=== PATIENT | male | born 1985 | race Caucasian/White ===

== ENCOUNTER → 2019-08-03 16:58 | Outpatient (CLI) | payer OTHER, SELFPAY ==
[2019-08-03 17:59] LABS: Basophils # 0.1 K/mm3 (0-0.2); Basophils % 0.6 % (0.1-2.0); Eosinophils # 0.2 K/mm3 (0.0-0.4); Eosinophils % 2.2 % (0.1-12.0); Hematocrit 52.1 % (42.0-52.0); Hemoglobin 16.7 g/dL (14.1-18.0); Lymphocytes # 1.6 K/mm3 (0.7-4.5); Lymphocytes % 19.6 % (10-50); Mean Corpuscular HGB Conc 32.1 g/dL (31.8-35.4); Mean Corpuscular Hemoglobin 27.2 pg (27.0-31.2); Mean Corpuscular Volume 84.6 fl (80-94); Mean Platelet Volume 8.4 fl (7.4-10.4); Monocytes # 0.5 K/mm3 (0.1-1.0); Monocytes % 5.6 % (1.7-9.3); Neutrophils # 5.8 K/mm3 (1.8-7.8); Platelet Count 214 K/mm3 (142-424); Red Blood Count 6.16 M/mm3 (4.60-6.20); Red Cell Distribution Width 13.1 % (11.5-17.5)
[2019-08-03 21:16] LABS: Chloride 101 mmol/L (98-107); Potassium 4.8 mmoL/L (3.5-5.1); Sodium 137 mmol/L (136-145)
[2019-08-03 21:18] LABS: Blood Urea Nitrogen 13 mg/dl (9-20); Estimated Glomerular Filt Rate 132 ml/min (>60); GFR (African American) 159 ML/MIN (>60)
[2019-08-03 21:19] LABS: Alanine Aminotransferase 38 U/L (12-78); Albumin Level 4.4 g/dl (3.5-5.0); Albumin/Globulin Ratio 1.2 (1.1-1.8); Alkaline Phosphatase 122 U/L (38-126); Anion Gap 15.8 mEq/L (5-15); Aspartate Amino Transferase 28 U/L (17-59); Bilirubin,Total 0.5 mg/dl (0.2-1.3); Calcium 9.8 mg/dl (8.4-10.2); Carbon Dioxide 25 mmol/L (22.0-30.0); Chol/HDL Ratio 5.7 (1-3.5); Cholesterol 246 mg/dl (140-200); Globulin 3.6 g/dL (1.3-3.2); Glucose 242 mg/dl (74-100); HDL Cholesterol 43 mg/dl (40-60); Triglycerides 274 mg/dl (30-150); VLDL Cholesterol 55 mg/dL (0-40)
[2019-08-03 21:35] LABS: Direct LDL Cholesterol 158.09 mg/dL (100-129)
[2019-08-03 21:38] LABS: Free T4 (Free Thyroxine) 1.31 ng/dl (0.78-2.19)
== END ==
PROVIDERS: Visit Provider Emergency Medicine
DX: I10 Essential (primary) hypertension (principal); K21.9 Gastro-esophageal reflux disease without esophagitis; E66.09 Other obesity due to excess calories; G47.33 Obstructive sleep apnea (adult) (pediatric)
CPT/HCPCS: 80053; 80061; 84439; 84443; 85025

== ENCOUNTER → 2019-11-09 17:23 | Outpatient (CLI) | payer OTHER, SELFPAY | PROVIDERS: Visit Provider Nurse Practitioner Family | DX: R31.0 Gross hematuria (principal) | CPT/HCPCS: 87086; 87088; 87186 ==

== ENCOUNTER → 2020-01-04 17:41 | Outpatient (CLI) | payer OTHER, SELFPAY ==
[2020-01-04 18:02] LABS: Basophils % 0.3 % (0.1-2.0); Eosinophils # 0.2 K/mm3 (0.0-0.4); Eosinophils % 2.5 % (0.1-12.0); Hemoglobin 16.6 g/dL (14.1-18.0); Lymphocytes # 1.7 K/mm3 (0.7-4.5); Lymphocytes % 19.3 % (10-50); Mean Corpuscular HGB Conc 33.1 g/dL (31.8-35.4); Mean Corpuscular Hemoglobin 28.5 pg (27.0-31.2); Mean Platelet Volume 9.2 fl (7.4-10.4); Monocytes # 0.5 K/mm3 (0.1-1.0); Monocytes % 5.6 % (1.7-9.3); Neutrophils # 6.3 K/mm3 (1.8-7.8); Neutrophils % 72.3 % (37.0-80.0); Platelet Count 188 K/mm3 (142-424); Red Blood Count 5.82 M/mm3 (4.60-6.20); Red Cell Distribution Width 13.2 % (11.5-17.5); White Blood Count 8.7 K/mm3 (4.8-10.8)
[2020-01-04 18:12] LABS: Alanine Aminotransferase 39 U/L (12-78); Albumin/Globulin Ratio 1.2 (1.1-1.8); Alkaline Phosphatase 155 U/L (38-126); Anion Gap 11.2 mEq/L (5-15); Aspartate Amino Transferase 36 U/L (17-59); Bilirubin,Total 0.4 mg/dl (0.2-1.3); Blood Urea Nitrogen 7 mg/dl (9-20); Calcium 9.3 mg/dl (8.4-10.2); Carbon Dioxide 27 mmol/L (22.0-30.0); Chloride 102 mmol/L (98-107); Estimated Glomerular Filt Rate 193 ml/min (>60); GFR (African American) 233 ML/MIN (>60); Globulin 3.4 g/dL (1.3-3.2); Glucose 334 mg/dl (74-100); Potassium 4.2 mmoL/L (3.5-5.1); Sodium 136 mmol/L (136-145); Total Protein,Serum 7.4 g/dl (6.3-8.2)
[2020-01-04 18:27] LABS: 25-OH Vitamin D, Total 20.8 ng/mL (30-100)
[2020-01-04 19:49] LABS: Hemoglobin A1C 10.4 % (4.0-6.0)
== END ==
PROVIDERS: Visit Provider Emergency Medicine
DX: E66.9 Obesity, unspecified (principal); E55.9 Vitamin D deficiency, unspecified
CPT/HCPCS: 80053; 82306; 83036; 84439; 84443; 85025

== ENCOUNTER → 2021-01-24 15:55 | Outpatient (CLI) | payer OTHER, SELFPAY ==
[2021-01-24 16:03] LABS: Basophils # 0.1 K/mm3 (0-0.2); Basophils % 0.8 % (0.1-2.0); Eosinophils # 0.3 K/mm3 (0.0-0.4); Eosinophils % 3.7 % (0.1-12.0); Hematocrit 50.2 % (42.0-52.0); Lymphocytes # 1.8 K/mm3 (0.7-4.5); Lymphocytes % 19.9 % (10-50); Mean Corpuscular HGB Conc 31.9 g/dL (31.8-35.4); Mean Corpuscular Hemoglobin 27.3 pg (27.0-31.2); Mean Corpuscular Volume 85.6 fl (80-94); Mean Platelet Volume 9.8 fl (7.4-10.4); Monocytes # 0.6 K/mm3 (0.1-1.0); Monocytes % 6.3 % (1.7-9.3); Neutrophils # 6.3 K/mm3 (1.8-7.8); Neutrophils % 69.3 % (37.0-80.0); Platelet Count 182 K/mm3 (142-424); Red Blood Count 5.86 M/mm3 (4.60-6.20); Red Cell Distribution Width 13.9 % (11.5-17.5); White Blood Count 9.2 K/mm3 (4.8-10.8)
[2021-01-24 16:50] LABS: Chloride 104 mmol/L (98-107); Potassium 4.4 mmoL/L (3.5-5.1); Sodium 139 mmol/L (136-145)
[2021-01-24 16:53] LABS: Alanine Aminotransferase 21 U/L (12-78); Albumin Level 4.1 g/dl (3.5-5.0); Albumin/Globulin Ratio 1.3 (1.1-1.8); Alkaline Phosphatase 108 U/L (38-126); Anion Gap 12.4 mEq/L (5-15); Aspartate Amino Transferase 23 U/L (17-59); Bilirubin,Total 0.3 mg/dl (0.2-1.3); Blood Urea Nitrogen 10 mg/dl (9-20); Carbon Dioxide 27 mmol/L (22.0-30.0); Estimated Glomerular Filt Rate 155 ml/min (>60); GFR (African American) 188 ML/MIN (>60); Globulin 3.1 g/dL (1.3-3.2); Glucose 212 mg/dl (74-100); Total Protein,Serum 7.2 g/dl (6.3-8.2)
== END ==
PROVIDERS: Visit Provider Nurse Practitioner Family
DX: N39.0 Urinary tract infection, site not specified (principal); I10 Essential (primary) hypertension
CPT/HCPCS: 80053; 85025; 87086

== ENCOUNTER → 2021-07-02 12:54 | Outpatient (CLI) | payer OTHER, SELFPAY | PROVIDERS: PCP Emergency Medicine; Visit Provider Nurse Practitioner | DX: U07.1 COVID-19 (principal) | CPT/HCPCS: C9803; U0003; U0005 ==

== ENCOUNTER → 2021-07-16 16:00 | Outpatient (CLI) | payer OTHER, SELFPAY ==
[2021-07-16 21:22] LABS: Hemoglobin A1C 6.2 % (4.0-6.0)
== END ==
PROVIDERS: Visit Provider Nurse Practitioner Family
DX: R73.9 Hyperglycemia, unspecified (principal); Z79.84 Long term (current) use of oral hypoglycemic drugs
CPT/HCPCS: 83036

== ENCOUNTER → 2021-07-18 08:05 | Outpatient (CLI) | payer OTHER, SELFPAY ==
--- NOTE | 2021-07-18 08:07 | CA_ITS ---
FINAL REPORT TECHNIQUE: Grayscale, color Doppler and duplex Doppler ultrasound of the kidneys, aorta and renal arteries was performed. Multiple velocities were measured. CLINICAL HISTORY: htn/abnormal ecg FINDINGS: Aorta velocity: 112 cm/sec Right kidney: 13.8 cm. No evidence of hydronephrosis or mass. Right intrarenal RI: 0.63 Right renal artery velocity: 136 cm/sec. Right RAR (Renal artery-Aortic Ratio): 1.21 Left Kidney: 14.2 cm. No evidence of hydronephrosis or mass. Left intrarenal RI: 0.70 Left renal artery velocity: 120 cm/sec. Left RAR (Renal Artery-Aortic Ratio): 1.06 IMPRESSION: No evidence of significant renal artery stenosis. CT angiogram or postcontrast MR angiogram would be more sensitive for evaluation of possible renal artery stenosis. Reviewed, Interpreted and Dictated by Nabeel Gordon III, MD Transcribed by Rufino Fernandes Authenticated by Nabeel Gordon III, MD on 07/18/2021 09:40:00 AM [facility]
--- NOTE | 2021-07-18 08:07 | CA_ITS ---
APPROVED REPORT EXAM: Comprehensive 2D, Doppler, and color-flow Echocardiogram Rn Med Surg: Haylee Gordon CRT Ht: 6 ft 5 in Wt: 361lbs BSA: 2.87 BP: 188/120 mmHg Indications: Abnormal ECG, Diabetes, Obesity, Peripheral Edema, Hyperlipidemia, Hypertension/HDD, GERD 2D Dimensions LVOT 2.17 cm (M/F) 1.5-2.5 LA Volume 51.00 mL LA Volume Index 17.80 mL/m2 (M/F) 16-34 M-Mode Dimensions RVDd 3.33 cm (0.9-2.6) LA Diam 4.28 cm (1.9-4.0) LVDd 5.46 cm (3.5-5.7) Ao Diam 4.36 cm (2.0-3.7) LVDs 4.30 cm (3.5-5.7) IVSd 2.20 cm (0.6-1.1) PWd 1.15 cm (0.6-1.1) EF (Teich) 42.70% FS 21.20% EDV (Teich) 145.00 mL TAPSE 2.04 (<1.7) ESV (Teich) 83.10 mL LV Diastology E Decel Time 153.00 (160-240 msec) E/A Ratio 1.18 MED E' 6.40 (< 7 cm/sec) MED A' 7.20 cm/s E'/MED E' Ratio 11.30 (>14) LAT E' 6.80 (<10 cm/sec) LAT A' 4.40 cm/s E/LAT E' Ratio 10.63 (>14) Aortic Valve AI PHT 560.00 ms AO Peak GR. 5.30 mmHg Mitral Valve MV E Max Joe. 72.00 (40-130 cm/s) MV A Velocity 61.00 (40-130 cm/s) E/A Ratio 1.18 MV Decel. Time 153.00 (160-240 ms) MV PHT 45.00 ms Pulmonary Valve PV Peak Velocity 128.00 (50-150 cm/s) Tricuspid Valve TR P. Velocity 183.00 cm/s RAP Estimate 10.00 mmHg RVSP 23.30 mmHg Left Ventricle Left atrium is mildly enlarged, left ventricle is normal size, mild concentric left ventricular hypertrophy, visually estimated ejection fraction approximately 40%, left ventricle is globally hypokinetic. Diastolic parameters are inconclusive. Right Ventricle Right atrium and right ventricle mildly enlarged with normal contractility. Aortic Valve Aortic valve is minimally thickened and fibrosed, there is no aortic stenosis, there is trace aortic insufficiency. Mitral Valve Mitral valve grossly normal, there is trace mitral regurgitation. Tricuspid Valve Tricuspid grossly normal, there is trace tricuspid regurgitation, tricuspid regurgitation jet velocity is inadequate for calculation of the right ventricular systolic pressure. Pulmonic Valve Pulmonic valve is poorly visualized. Great Vessels Aortic root is normal size. Inferior vena cava is poorly visualized. Pericardium No significant pericardial effusion noted. Conclusion 1. Mild biatrial enlargement, normal left ventricular size, mild concentric left ventricular hypertrophy, visually estimated ejection fraction 40%, left ventricle is globally hypokinetic. Diastolic parameters are inconclusive. 2. Mildly enlarged right ventricle with normal contractility. 3. Trace mitral and tricuspid regurgitation. 4. No significant pericardial effusion noted. 5. Inferior vena cava is poorly visualized. Electronically signed by : Jasen Echols MD 07/18/2021 19:44:55
== END ==
PROVIDERS: PCP Nurse Practitioner Family; Visit Provider Nurse Practitioner Family
DX: E11.9 Type 2 diabetes mellitus without complications (principal); E66.9 Obesity, unspecified; E78.49 Other hyperlipidemia; I15.0 Renovascular hypertension; R94.31 Abnormal electrocardiogram [ECG] [EKG]; R60.0 Localized edema; R06.81 Apnea, not elsewhere classified; R06.83 Snoring; Z72.0 Tobacco use; Z68.41 Body mass index [BMI] 40.0-44.9, adult; Z79.84 Long term (current) use of oral hypoglycemic drugs
CPT/HCPCS: 93306; 93976

== ENCOUNTER → 2021-07-25 13:22 | Outpatient (CLI) | payer OTHER, SELFPAY ==
[2021-07-25 13:45] LABS: Coronavirus 19, PCR Not Detected (NotDetected); Influenza A, PCR Not Detected (NotDetected); Influenza B, PCR Not Detected (NotDetected)
[2021-07-25 14:07] LABS: ABG HCO3 26.7 mmhg (22.0-26.0); ABG Oxygen Saturation 96 % (90-100); ABG PCO2 43.5 mmhg (35.0-45.0); ABG PH 7.41 mmol/L (7.35-7.45); ABG PO2 75.6 mmhg (80-100)
[2021-07-25 14:09] LABS: Allen's Test Acceptable; Oxygen ROOM AIR %; Source Left Radial
[2021-07-25 14:18] LABS: Basophils # 0.1 K/mm3 (0-0.2); Basophils % 1.1 % (0.1-2.0); Eosinophils # 0.3 K/mm3 (0.0-0.4); Eosinophils % 4.1 % (0.1-12.0); Hematocrit 51.5 % (42.0-52.0); Hemoglobin 16.4 g/dL (14.1-18.0); Lymphocytes # 1.9 K/mm3 (0.7-4.5); Lymphocytes % 24.7 % (10-50); Mean Corpuscular HGB Conc 31.9 g/dL (31.8-35.4); Mean Corpuscular Hemoglobin 28.2 pg (27.0-31.2); Mean Corpuscular Volume 88.3 fl (80-94); Monocytes # 0.6 K/mm3 (0.1-1.0); Monocytes % 7.2 % (1.7-9.3); Neutrophils # 4.9 K/mm3 (1.8-7.8); Neutrophils % 62.9 % (37.0-80.0); Platelet Count 204 K/mm3 (142-424); Red Blood Count 5.83 M/mm3 (4.60-6.20); Red Cell Distribution Width 13.6 % (11.5-17.5); White Blood Count 7.8 K/mm3 (4.8-10.8)
[2021-07-25 14:37] LABS: D-Dimer 0.33 ug/mL (0.0-0.5)
[2021-07-25 15:00] LABS: Alanine Aminotransferase 24 U/L (12-78); Albumin Level 4.3 g/dl (3.5-5.0); Alkaline Phosphatase 94 U/L (38-126); Anion Gap 11.7 mEq/L (5-15); Aspartate Amino Transferase 26 U/L (17-59); Bilirubin,Direct 0.2 mg/dl (0.0-0.4); Bilirubin,Indirect 0.2 mg/dL (0.0-0.9); Bilirubin,Total 0.4 mg/dl (0.2-1.3); Bilirubin,Unconjugated 0.3 mg/dL (0.0-1.1); Blood Urea Nitrogen 15 mg/dl (9-20); Calcium 9.5 mg/dl (8.4-10.2); Carbon Dioxide 27 mmol/L (22.0-30.0); Chloride 106 mmol/L (98-107); Chol/HDL Ratio 5.7 (1-3.5); Cholesterol 193 mg/dl (140-200); Estimated Glomerular Filt Rate 111 ml/min (>60); GFR (African American) 135 ML/MIN (>60); Glucose 92 mg/dl (74-100); HDL Cholesterol 34 mg/dl (40-60); Potassium 3.7 mmoL/L (3.5-5.1); Sodium 141 mmol/L (136-145); Total Protein,Serum 7.1 g/dl (6.3-8.2); Triglycerides 321 mg/dl (30-150); VLDL Cholesterol 64 mg/dL (0-40)
[2021-07-25 15:11] LABS: Direct LDL Cholesterol 119.52 mg/dL (100-129)
[2021-07-25 15:17] LABS: Free T4 (Free Thyroxine) 1.12 ng/dl (0.78-2.19)
[2021-07-25 16:16] LABS: Thyroid Stimulating Hormone 0.97 uIU/mL (0.465-4.68)
== END ==
PROVIDERS: PCP Emergency Medicine; Visit Provider Internal Medicine
DX: E11.9 Type 2 diabetes mellitus without complications (principal); E78.49 Other hyperlipidemia; I10 Essential (primary) hypertension; K21.9 Gastro-esophageal reflux disease without esophagitis; I15.0 Renovascular hypertension; R06.81 Apnea, not elsewhere classified; R06.83 Snoring; R60.0 Localized edema; R94.31 Abnormal electrocardiogram [ECG] [EKG]; Z72.0 Tobacco use; E66.01 Morbid (severe) obesity due to excess calories; Z79.84 Long term (current) use of oral hypoglycemic drugs; Z01.812 Encounter for preprocedural laboratory examination; Z11.52 Encounter for screening for COVID-19
CPT/HCPCS: 36415; 80048; 80061; 80076; 82803; 84439; 84443; 85025; 85378; C9803; U0003; U0005

== ENCOUNTER → 2021-07-25 21:18 | Outpatient (CLI) | payer OTHER, SELFPAY | PROVIDERS: PCP Emergency Medicine; Visit Provider Nurse Practitioner Family | DX: G47.33 Obstructive sleep apnea (adult) (pediatric) (principal); R09.02 Hypoxemia; I27.20 Pulmonary hypertension, unspecified | CPT/HCPCS: 95811 ==

== ENCOUNTER 2021-07-26 11:16 | Day surgery (SDC) | payer OTHER, SELFPAY ==
[2021-07-26] VITALS (10 sets, daily range): BP systolic 118–177; BP diastolic 73–113; PULSE 69–79; RESP 18–20; O2SAT 92–100; BMI 42.7
--- NOTE | 2021-07-26 07:04 | IR_ITS ---
APPROVED REPORT Patient Location: Outpatient PROCEDURES Right heart catheterization Left heart catheterization Left ventriculogram Selective coronary angiogram INDICATION Severe pulmonary hypertension, Angina pectoris, Systolic congestive heart failure Informed consent was obtained prior to the procedure. COMPLICATIONS None Estimated Blood Loss: Less than 10 mls TECHNIQUE 1% lidocaine used anesthetize the right groin the right femoral artery and vein were accessed via the Seldinger technique and a 4 Setswana 7 Setswana sheath were placed in the artery vein respectively. A JL4 JR4 catheter used to perform left heart catheterization left ventriculogram and selective coronary angiogram. Gorham-Keaton catheter was then floated in the pulmonary artery and right heart catheterization was performed. At the end of the procedure the apparatus was removed the groin was reprepped gloves were changed arterial sheath was removed good hemostasis was achieved using Angio-Seal device patient was transferred to the postop putting in stable condition ANGIOGRAPHIC RESULTS The left main artery Normal The left anterior descending artery Normal The circumflex artery Normal The right coronary artery Dominant normal The NOLAND ventriculogram reveals Dilated reduced ejection fraction 40% The left ventricular end-diastolic pressure 25 mmHg Right atrial pressure 12 mmHg Pulmonary artery pressure 60/30 mmHg Pulmonary occlusion pressure 25 mmHg Right atrial saturation 81% Pulmonary artery saturation 77% IMPRESSION Normal coronary arteries Dilated ventricle with reduced ejection fraction Severe pulmonary hypertension Biventricular congestive heart failure PLAN 1. Patient was found to have severe obstructive sleep apnea and has been prescribed CPAP. Compliance with CPAP is essential 2. Standard therapy referral for LV dysfunction which should include ANT inhibitors and carvedilol 3. Today lisinopril HCT will be discontinued and lisinopril 40 mg twice daily will be started 4. Lasix 40 mg p.o. twice daily will be started today 5. Aldactone 50 mg daily 6. Patient requires diuresis with better control of hypertension. Electronically signed by : Cameron Forbes MD 07/26/2021 14:12:08
[2021-07-26 14:48] LABS: CATHL Arterial O2 SAT 77.5 % (90-100); CATHL Venous O2 SAT 81.6 % (75-80)
== END 2021-07-26 16:58 | disposition home or self-care (01) ==
LOC: CATHLAB 11:16
PROVIDERS: PCP Nurse Practitioner Family; Visit Provider Internal Medicine
DX: I42.9 Cardiomyopathy, unspecified (principal); E66.01 Morbid (severe) obesity due to excess calories; E78.49 Other hyperlipidemia; I11.0 Hypertensive heart disease with heart failure; I15.0 Renovascular hypertension; I27.20 Pulmonary hypertension, unspecified; I50.9 Heart failure, unspecified; K21.9 Gastro-esophageal reflux disease without esophagitis; R94.31 Abnormal electrocardiogram [ECG] [EKG]; F17.210 Nicotine dependence, cigarettes, uncomplicated; I25.118 Atherosclerotic heart disease of native coronary artery with other forms of angina pectoris; I50.22 Chronic systolic (congestive) heart failure; I50.82 Biventricular heart failure
CPT/HCPCS: 82810; 93460; 99152; C1725; C1760; C1769; C1894; J1644; Q9967

== ENCOUNTER → 2021-09-15 11:40 | Outpatient (CLI) | payer OTHER, SELFPAY ==
--- NOTE | 2021-09-15 11:40 | MR_ITS ---
FINAL REPORT CLINICAL HISTORY: shoudler pain x's chronic. pain with lifting and picking things up. lrom. nki. FINDINGS: Multiplanar MR imaging of the left shoulder was performed without contrast. There is a focal intrasubstance tear at the anterior footprint of the supraspinatus tendon involving greater than 50% of the tendon thickness. There is a mild degenerative changes of the acromioclavicular joint. A small amount of fluid is seen in the subacromial/subdeltoid bursa. The glenoid labrum is intact. The long head of the biceps tendon is intact. A small glenohumeral joint effusion is seen. There is no evidence of fracture or dislocation. The musculature is intact. There is no evidence of soft tissue mass. IMPRESSION: Focal intrasubstance tear at the anterior footprint of the supraspinatus tendon involving greater than 50% of the tendon thickness. Mild acromioclavicular joint degenerative change and mild bursitis. Reviewed, Interpreted and Dictated by Nabeel Gordon III, MD Transcribed by Anahi Pacheco Authenticated by Nabeel Gordon III, MD on 09/16/2021 07:38:31 AM [facility]
== END ==
PROVIDERS: PCP Emergency Medicine; Visit Provider Orthopaedic Surgery
DX: M25.512 Pain in left shoulder (principal)
CPT/HCPCS: 73221

== ENCOUNTER → 2022-07-23 23:00 | Outpatient (CLI) | payer OTHER, SELFPAY ==
[2022-07-23 19:53] LABS: Alanine Aminotransferase 28 U/L (12-78); Albumin Level 4.7 g/dl (3.5-5.0); Albumin/Globulin Ratio 1.4 (1.1-1.8); Alkaline Phosphatase 111 U/L (38-126); Aspartate Amino Transferase 30 U/L (17-59); Bilirubin,Total 0.5 mg/dl (0.2-1.3); Blood Urea Nitrogen 20 mg/dl (9-20); Calcium 9.4 mg/dl (8.4-10.2); Carbon Dioxide 26 mmol/L (22.0-30.0); Chloride 108 mmol/L (98-107); Cholesterol 203 mg/dl (140-200); Estimated Glomerular Filt Rate 86 ml/min (>60); GFR (African American) 103 ML/MIN (>60); Globulin 3.3 g/dL (1.3-3.2); Glucose 110 mg/dl (74-100); HDL Cholesterol 41 mg/dl (40-60); Sodium 140 mmol/L (136-145); Triglycerides 170 mg/dl (30-150); VLDL Cholesterol 34 mg/dL (0-40)
[2022-07-23 20:03] LABS: Basophils % 0.7 % (0.1-2.0); Eosinophils # 0.3 K/mm3 (0.0-0.4); Eosinophils % 4.8 % (0.1-12.0); Hematocrit 48.1 % (42.0-52.0); Hemoglobin 15.5 g/dL (14.1-18.0); Lymphocytes # 1.7 K/mm3 (0.7-4.5); Lymphocytes % 25.7 % (10-50); Mean Corpuscular HGB Conc 32.2 g/dL (31.8-35.4); Mean Corpuscular Hemoglobin 27.9 pg (27.0-31.2); Mean Corpuscular Volume 86.7 fl (80-94); Mean Platelet Volume 9.5 fl (7.4-10.4); Monocytes # 0.4 K/mm3 (0.1-1.0); Monocytes % 6.7 % (1.7-9.3); Neutrophils # 4.1 K/mm3 (1.8-7.8); Neutrophils % 62.1 % (37.0-80.0); Platelet Count 241 K/mm3 (142-424); Red Blood Count 5.55 M/mm3 (4.60-6.20); Red Cell Distribution Width 13.8 % (11.5-17.5); White Blood Count 6.6 K/mm3 (4.8-10.8)
[2022-07-23 20:05] LABS: Direct LDL Cholesterol 114.73 mg/dL (100-129)
[2022-07-23 20:12] LABS: Free T4 (Free Thyroxine) 1.19 ng/dl (0.78-2.19)
[2022-07-23 20:25] LABS: Thyroid Stimulating Hormone 0.58 uIU/mL (0.465-4.68)
[2022-07-23 20:41] LABS: Anion Gap 10.7 mEq/L (5-15); Potassium 4.7 mmoL/L (3.5-5.1)
[2022-07-23 23:16] LABS: Hemoglobin A1C 6.4 % (4.0-6.0)
== END ==
PROVIDERS: PCP Emergency Medicine; Visit Provider Emergency Medicine
DX: E11.9 Type 2 diabetes mellitus without complications (principal); I10 Essential (primary) hypertension; E55.9 Vitamin D deficiency, unspecified; E66.01 Morbid (severe) obesity due to excess calories; Z68.41 Body mass index [BMI] 40.0-44.9, adult; Z79.84 Long term (current) use of oral hypoglycemic drugs
CPT/HCPCS: 80053; 80061; 82306; 83036; 84439; 84443; 85025

== ENCOUNTER → 2022-08-01 13:00 | Outpatient (CLI) | payer OTHER, SELFPAY ==
--- NOTE | 2022-08-01 13:04 | MR_ITS ---
FINAL REPORT TECHNIQUE: Multiplanar and multisequence imaging of the lumbar spine was obtained without contrast. CLINICAL HISTORY: back pain. low back pain. right leg pain numbness, and tingling. symptoms x3 weeks. no injury or trauma. COMPARISON: none FINDINGS: There is normal alignment of the lumbar vertebral bodies. Vertebral body height is preserved. The spinal cord ends at the level of L1. There is normal signal intensity within the substance of the distal spinal cord. Bone marrow signal intensity is normal. No acute paraspinal abnormality is identified. T12-L1: Small right paracentral protrusion. No central or foraminal stenosis. L1-2: There is no focal disc herniation, central canal stenosis or neuroforaminal narrowing. L2-3: Annular disc bulge with degenerative endplate changes and facet osteoarthropathy. No canal stenosis. Mild bilateral foraminal narrowing. L3-4: Annular disc bulge with degenerative endplate changes. No central stenosis. No right foraminal narrowing. Mild to moderate left foraminal narrowing. L4-5: Central protrusion. No significant central stenosis. Mild bilateral foraminal narrowing in part due to facet osteoarthropathy. L5-S1: Broad-based left paracentral protrusion. Disc material may contact the left S1 nerve root within the canal. No central stenosis. Mild bilateral foraminal narrowing. IMPRESSION: Broad-based left paracentral protrusion at L5-S1. Disc material may contact the left S1 nerve root. Correlate with left S1 radiculopathy. Mild degenerative disc disease at additional levels as detailed above. Reviewed, Interpreted and Dictated by Megan Otto MD Transcribed by Radha Morelos Authenticated and [facility] [place] [place]
== END ==
PROVIDERS: PCP Emergency Medicine; Visit Provider Emergency Medicine
DX: M54.9 Dorsalgia, unspecified (principal); M54.50 Low back pain, unspecified
CPT/HCPCS: 72148; 76376

== ENCOUNTER → 2022-12-09 13:57 | Outpatient (POV) | payer OTHER, SELFPAY ==
--- NOTE | 2022-12-09 14:17 | EXP.PAIN.OV ---
HPI Data of Consult Patient: new to practice Consult date: 12/09/22 Requesting Physician: Lorna Henry APRN Primary Care Provider: Singh Robertson MD Consult Narrative Reason for consult: Low back pain History of present illness: Mr. Castillo is a 37 year old male who presents today as a new patient. He is a referral from Dr. Robertson's office. Today he rates his pain a 7 out of 10. Patient states his pain is all in his low back with radiating symptoms down his right leg. Patient does state this has been going on since he was approximately 20 years old. He states that he did have a significant growth spurt and doctors believe that his pain was related to that. Patient denies any previous injury or trauma that initially led to his symptoms. Patient has not ever had any back surgery or injective history. Patient does describe his pain as a constant sharp achy sensation with numbness and tingling. It does interfere with his ability perform activities of daily living such as cooking and cleaning. Patient states that he has been to the chiropractor and it made his symptoms worse. Patient denies any previous physical therapy. Patient does state that he has tried cyclobenzaprine in the past however it did not provide significant relief. Patient states that he just cannot get comfortable at any point in time due to the worsening pain symptoms. He has tried [id number] Tylenol and ibuprofen along with a heating pad and ice and topicals such as Biofreeze and IcyHot with minimal relief. Patient is currently on gabapentin 100 mg 3 times a day from his primary care doctor's office. Patient denies any side effects from this medication however he states he has only noticed minimal improvement. His Emeka is [phone]. Its been reviewed and appropriate. CC: Lorna Henry APRN [facility] Disclaimer: The information contained in this section may have been updated after the patient was seen, as this information can be updated by other users. Medical History (Updated 12/09/22 @ 14:32 by Lorna Henry APRN) Abnormal echocardiogram Atypical angina Cardiomyopathy Congestive heart failure Diabetes mellitus Dyspnea GERD (gastroesophageal reflux disease) Hyperlipidemia Hypertension Pulmonary HTN Vitamin D deficiency Social History Smoking Status: Current some day smoker tobacco type: cigarettes packs per day: 1 alcohol intake: never substance use type: marijuana current occupational status: employed Travel in the last 8 weeks: Inside the [place] household members: spouse and children housing: house Review of Systems Review of Systems Review of systems:: pertinent systems reviewed and negative unless documented below Review of systems (narrative): Review of Systems: General: No recent weight changes, no fever, no sleep disturbances Respiratory: No cough, no shortness of air, no recurring pulmonary infections Cardiovascular/peripheral vascular: No chest pain, no palpitations, no edema, no shortness of breath Gastrointestinal: No new onset incontinence, normal bowel movements reported Genitourinary: No new onset incontinence Musculoskeletal: Low back pain Psychiatric: [Normal mood/affect] Neurological: [Denies weakness in extremities], [denies balance issues] Meds Home Medications and Allergies Home Medications Medication Instructions Recorded Confirmed Type empagliflozin 10 mg tablet 10 mg PO DAILY #90 tabs 12/25/21 11/22/22 Rx (Jardiance) blood sugar diagnostic (Blood #50 ea 05/24/22 11/22/22 Rx Glucose Test strips) blood-glucose meter (Blood Glucose #1 ea 05/24/22 11/22/22 Rx Monitoring kit) carvedilol 12.5 mg tablet (Coreg) 12.5 mg PO BID #60 tabs 05/24/22 11/22/22 Rx lancets 30 gauge #100 ea 05/24/22 11/22/22 Rx atorvastatin 20 mg tablet (Lipitor) 20 mg PO DAILY #90 tabs 07/30/22 11/22/22 Rx ergocalciferol (vitamin D2) 1,250 50,000 unit
[2022-12-09 14:46] VITALS: BP 156/96; PULSE 96; RESP 18; O2SAT 97; BMI 43.9
== END | disposition home or self-care (01) ==
PROVIDERS: PCP Emergency Medicine; Visit Provider Nurse Practitioner Family
DX: M51.16 Intervertebral disc disorders with radiculopathy, lumbar region (principal); M54.50 Low back pain, unspecified
CPT/HCPCS: 99202; G0463

== ENCOUNTER 2022-12-24 12:50 | Day surgery (SDC) | payer OTHER, SELFPAY ==
[2022-12-24 13:00] VITALS: BP 127/76; PULSE 103; RESP 18; TEMP 36.8; O2SAT 98; BMI 43.9
[2022-12-24 13:10] VITALS: BP 150/88; PULSE 94; RESP 18; O2SAT 98
--- NOTE | 2022-12-24 13:11 | EXP.PAIN.PRO ---
Procedure Date: 12/24/22 Time: 13:00 Anesthesiologist:: Po Lafleur CRNA Complications:: None Pre-procedure Diagnosis:: Degenerative disc lumbar spine multilevels. Lumbar radiculopathy. Post-procedure Diagnosis:: Same. Indications for Procedure:: Pleasant 37-year-old male that comes our clinic today for lumbar epidural steroid injection L5-S1 level. Patient had low back pain is constant, dull, aching. Also complains of bilateral hip and leg radicular symptoms at times. He rates his pain 7/10 Procedure Details:: Procedure: Lumbar epidural steroid injection under fluoroscopy Informed consent was obtained and the risks and benefits of the procedure were explained to the patient. The patient was taken to the procedure room and noninvasive monitors placed, including noninvasive blood pressure cuff and pulse oximeter. The back was viewed using C-arm Fluoroscopy and prepped using Chloraprep as a cleansing solution and the L5-S1 interspace was palpated. Skin and subcutaneous tissues were anesthetized using lidocaine 1.5% and a 25-gauge needle. After this, an 18-gauge Touhy epidural needle was placed into the L5-S1 interspace and advanced using fluoroscopic guidance and loss of resistance to air until the epidural space was encountered. After confirmation of needle placement in the epidural space, with dye, a solution containing normal saline, 3 mL and Depo-Medrol 80 mg were incrementally injected into the lumbar epidural space. The patient tolerated the procedure well with no complications. The patient was observed in the Pain Clinic and then discharged home neurologically intact. Plan and Disposition:: Patient was discharged without incident.
== END 2022-12-24 13:10 | disposition home or self-care (01) ==
PROVIDERS: PCP Emergency Medicine; Visit Provider Nurse Anesthetist, Certified Registered
DX: M51.16 Intervertebral disc disorders with radiculopathy, lumbar region (principal)
CPT/HCPCS: 62323; J1040

== ENCOUNTER → 2023-01-09 10:39 | Outpatient (POV) | payer OTHER, SELFPAY ==
[2023-01-09 11:10] VITALS: BP 123/96; PULSE 92; RESP 20; BMI 43.9
--- NOTE | 2023-01-09 11:56 | EXP.PAIN.SOA ---
[facility] Pain Management SOAP Note Subjective:: Patient is a pleasant 37-year-old male who presents today for follow-up of lumbar epidural steroid injection L5-S1 on 12/24/2022. We are currently treating the patient for degenerative disc disease of lumbar spine with lumbar radiculopathy symptoms, low back pain. Today he rates his pain an 8 out of 10. Patient denies any new trauma or injury. He denies any change to location or type of pain he experiences. Patient states that he did get approximately 3 to 4 days worth of relief rating it approximately 40%. Patient does state that he is back to his baseline today. He also states that the injection was very expensive [id number] with a $258 charge that he had to pay. Patient states he would be interested in other injections however he cannot afford to do them at this campa. Patient was previously started on methocarbamol 750 mg 3 times a day however he states he did not notice any additional relief. He does continue to use [id number] Tylenol and ibuprofen with minimal relief. He is currently prescribed gabapentin 300 mg 3 times a day from an outside provider. Patient denies any side effects from this medication. He does also state that he has CHF and does see a front desk person on a regular basis. His Emeka is [phone]. Its been reviewed and appropriate. Review of Systems: General: No recent weight changes, no fever, no sleep disturbances Respiratory: No cough, no shortness of air, no recurring pulmonary infections Cardiovascular/peripheral vascular: No chest pain, no palpitations, no edema, no shortness of breath Gastrointestinal: No new onset incontinence, normal bowel movements reported Genitourinary: No new onset incontinence Musculoskeletal: Low back pain, leg pain Psychiatric: [Normal mood/affect] Neurological: [Denies weakness in extremities], [denies balance issues] Objective:: Physical Exam: General: Alert and oriented x3, no acute distress, pleasant and cooperative Lungs: Respirations even and unlabored, symmetrical chest expansion Eyes: PERRL Musculoskeletal: Flexion and extension of lumbar [spine] somewhat guarded secondary to pain, [antalgic gait noted] Neurological: Speech clear, no gross sensory deficit Assessment:: Degenerative disc disease of lumbar spine with lumbar radiculopathy symptoms Plan:: I have counseled the patient that he may need a couple of different lumbar epidurals to notice significant relief however due to the increased cost for the injections I have recommended that he talk to his insurance and see if there is any difference in the campa for a clinic setting versus hospital setting. I will send in a new prescription of tizanidine 4 mg 3 times daily and provide a 2-week supply of this medication. I have counseled him to contact our office if he would like additional refills of this. I will also order the patient compounding cream. Patient will return to clinic in 1 month for reevaluation of symptoms and plan of care. Patient has been instructed to contact the clinic with any concerns before the next appointment. Dr. Pepe has reviewed this note and agrees with this plan of care. This note was dictated using voice recognition software and make contain errors or omissions. [facility] Disclaimer: The information contained in this section may have been updated after the patient was seen, as this information can be updated by other users. Medical History Abnormal echocardiogram Atypical angina Cardiomyopathy Congestive heart failure Diabetes mellitus Dyspnea GERD (gastroesophageal reflux disease) Hyperlipidemia Hypertension Pulmonary HTN Vitamin D deficiency Social History Smoking Status: Current some day smoker tobacco type: cigarettes packs per day: 1 alcohol intake: never substance use type: marijuana current occupational status: othe
== END | disposition home or self-care (01) ==
PROVIDERS: PCP Emergency Medicine; Visit Provider Nurse Practitioner Family
DX: M51.16 Intervertebral disc disorders with radiculopathy, lumbar region (principal)
CPT/HCPCS: 99212; G0463